=== PATIENT | female | born 1950 | race Caucasian/White ===

== ENCOUNTER 2018-10-01 08:54 | Outpatient (CLI) | payer OTHER | END 2018-10-01 08:56 | disposition home or self-care (01) | LOC: SONOGRAMA 08:54 | DX: E04.2 Nontoxic multinodular goiter (principal) ==

== ENCOUNTER 2019-07-15 07:06 | Outpatient (CLI) | payer OTHER | END 2019-07-15 07:09 | disposition home or self-care (01) | LOC: SONOGRAMA 07:06 | DX: E04.2 Nontoxic multinodular goiter (principal) ==